=== PATIENT | male | born 1950 | race Hispanic/Latino ===

== ENCOUNTER 2017-03-17 09:19 | Outpatient (CLI) | payer BC | END 2017-03-17 09:20 | disposition home or self-care (01) | LOC: BICULT 09:19 | PROVIDERS: ATTEND Internal Medicine | DX: R30.0 Dysuria (principal) | CPT/HCPCS: 76770 ==

== ENCOUNTER 2017-03-18 08:19 | Emergency (ER) | payer BC ==
[2017-03-18 09:28] LABS: #Eosinphils 0.2 thou/uL (0.0-0.7); #Lymphocytes 1.7 thou/uL (1.20-3.40); #Monocytes 0.5 thou/uL (0.11-0.59); #Neutrophils 3.4 thou/uL (1.40-6.50); %Basophils 0.7 % (0.0-1.0); %Eosinophils 4.1 % (0.0-10.0); %Lymphocytes 28.8 % (21.0-51.0); %Monocytes 8.4 % (0.0-10.0); Hemoglobin 15.6 g/dL (14.0-18.0); Mean Corpuscular Hemoglobin 29.2 pg (27.0-31.0); Mean Corpuscular Volume 85.9 fl (80.0-94.0); Mean Platelet Volume 8.1 fL (7.4-10.4); Platelet Count 208 thou/uL (130-400); RBC Distribution Width 12.5 % (11.5-14.5); Red Blood Cell (RBC) Count 5.34 mill/uL (4.70-6.10); White Blood Cell (WBC) Count 5.9 thou/uL (4.8-10.8)
[2017-03-18 09:49] LABS: ALT (SGPT) 23 U/L (8-55); AST (SGOT) 21 U/L (5-34); Albumin 4.4 g/dL (3.4-4.8); Alkaline Phosphatase 97 U/L (40-150); Anion Gap 8 mmol/L (10-20); BUN (Urea Nitrogen) 9 mg/dL (8.4-25.7); Bilirubin, Total 0.6 mg/dL (0.2-1.2); Calc. Creatinine Clearance 0 mL/min (70-130); Calcium 10.6 mg/dL (7.8-10.44); Carbon Dioxide 28 mmol/L (23-31); Chloride 104 mmol/L (98-107); Estimated GFR-MDRD Greater than 90; Globulin 3.4 g/dL (2.4-3.5); Glucose 102 mg/dL (80-115); Potassium 3.9 mmol/L (3.5-5.1); Protein, Total 7.8 g/dL (5.8-8.1); Sodium 136 mmol/L (136-145)
[2017-03-18 10:12] LABS: Bilirubin Negative (Negative); Blood, Urine Negative (Negative); Clarity CLEAR (Clear); Glucose, Urine (Dipstick) Negative (Negative); Leukocyte Negative (Negative); Nitrite Negative (Negative); Protein, Urine (Dipstick) Negative (Neg-Trace); Specific Gravity, Urine 1.008 (1.002-1.036); Urobilinogen 0.2 mg/dL (0.2-1.0)
--- NOTE | 2017-03-18 10:56 | CT ---
CT ABDOMEN AND PELVIS WITH CONTRAST: Date: 03/18/17 HISTORY: Rectal pain. COMPARISON: CT abdomen and pelvis dated 08/06/10. FINDINGS: Mild atelectatic changes in the lung bases. No pericardial effusion. The spleen, pancreas, and gallbladder are unremarkable. There is a hypodensity in hepatic segment 8, too small to fully characterize. Aortoiliac contour is nonaneurysmal. No retroperitoneal adenopathy. No hydronephrosis. Too small to characterize hypodensity is present in the inferior pole of left kidney measuring 7 mm. There is extensive diverticular disease of the sigmoid colon without active inflammation. The appendi x is visualized and is normal. Limited evaluation of the external and internal sphincters are unremarkable. There is some low grade thickening of posterior wall urinary bladder. Previous TURP changes of the prostate. Pancreas is visualized and is normal. IMPRESSION: 1. No acute inflammatory process in abdomen or pelvis. 2. 7 mm hypodensity inferior pole left kidney. A follow-up ultrasound in 3-6 months is recommended. This is not definitively a cyst, although too small to definitively characterize. 3. Likely TURP changes of the prostate and neck of the urinary bladder. 4. Normal appendix. 5. Extensive diverticular disease sigmoid colon without current active inflammation. POS: [facility]
[2017-03-18] MEDS ORDERED: ISOVUE-370 76%-LOCM 1 ML ONE (14:29)
== END 2017-03-18 10:40 | disposition home or self-care (01) ==
LOC: ERS 08:19
DX: K57.90 Diverticulosis of intestine, part unspecified, without perforation or abscess without bleeding (principal); N41.9 Inflammatory disease of prostate, unspecified; I10 Essential (primary) hypertension; Z79.899 Other long term (current) drug therapy
CPT/HCPCS: 36415; 74177; 80053; 81003; 85025

== ENCOUNTER 2017-03-21 15:47 | Outpatient (CLI) | payer BC | END 2017-03-21 15:48 | disposition home or self-care (01) | LOC: BICULT 15:47 | PROVIDERS: ATTEND Internal Medicine | DX: M47.26 Other spondylosis with radiculopathy, lumbar region (principal) | CPT/HCPCS: 72148 ==

== ENCOUNTER 2017-11-16 07:44 | Outpatient (CLI) | payer BC | END 2017-11-16 07:45 | disposition home or self-care (01) | LOC: BICMAMMO 07:44 | PROVIDERS: ATTEND Internal Medicine | DX: Z13.820 Encounter for screening for osteoporosis (principal); E21.3 Hyperparathyroidism, unspecified | CPT/HCPCS: 77080 ==

== ENCOUNTER 2019-06-06 14:02 | Outpatient (CLI) | payer BC, MEDICARE ==
--- NOTE | 2019-06-06 15:46 | ULT ---
BILATERAL TESTICULAR ULTRASOUND WITH GARCIA SCALE AND COLOR FLOW AND SPECTRAL DOPPLER IMAGING: HISTORY: A 68-year-old male with scrotal pain worse on the right. FINDINGS: The right testis measures 3 x 4.7 x 2 cm and the left testis measures 3.2 x 4.3 x 2.4 cm. Symmetric blood flow is seen to both testes without focal mass or microlithiasis. The right epididymis measures 9 x 9 mm and the left epididymis measures 10 x 6 mm. There is a 5 mm c yst in the right epididymal head and 2 cysts measuring 6 and 4 mm in the left epididymal head. There is increased flow to the right epididymis compared to the left. A small left hydrocele is present. IMPRESSION: Findings highly suspicious for a right-sided epididymitis. POS: [facility]
== END 2019-06-06 14:03 | disposition home or self-care (01) ==
LOC: SCSULT 14:02
PROVIDERS: ATTEND Internal Medicine
DX: N50.819 Testicular pain, unspecified (principal)
CPT/HCPCS: 76870; 93976

== ENCOUNTER 2020-01-08 08:25 | Outpatient (CLI) | payer MEDICARE ==
--- NOTE | 2020-01-08 12:15 | NM ---
Exam: Nuclear medicine parathyroid scan HISTORY: Elevated parathyroid levels TECHNIQUE: Patient was administered 26.10 mCi of radiotracer. Planar and SPECT imaging was performed FINDINGS: Planar imaging: There is appropriate uptake of the radiotracer in the immediate, 1 hour and 2 hour im ages. There is no evidence of radiotracer retention in the thyroid bed to suggest a parathyroid adenoma SPECT imaging: Axial, sagittal and coronal SPECT images do not demonstrate scintigraphic evidence of a parathyroid adenoma IMPRESSION: No scintigraphic evidence of a parathyroid adenoma. Consider soft tissue neck CT utilizing parathyroi d protocol.
== END 2020-01-08 08:26 | disposition home or self-care (01) ==
LOC: NM 08:25
PROVIDERS: ATTEND Internal Medicine
DX: E21.3 Hyperparathyroidism, unspecified (principal)
CPT/HCPCS: 78072; A9500

== ENCOUNTER 2020-03-19 09:02 | Outpatient (CLI) | payer MEDICARE | END 2020-03-19 09:03 | disposition home or self-care (01) | LOC: BICULT 09:02 | PROVIDERS: ATTEND Internal Medicine | DX: N50.812 Left testicular pain (principal); N50.89 Other specified disorders of the male genital organs; N50.3 Cyst of epididymis | CPT/HCPCS: 76870; 93976 ==

== ENCOUNTER 2020-04-24 08:00 | Outpatient (CLI) | payer MEDICARE ==
[2020-04-24 08:29] LABS: Estimated GFR-MDRD - POC Greater than 90
[2020-04-24] MEDS ORDERED: Iopamidol-370 76% 500 ML 1 ML ONE (11:48)
== END 2020-04-24 08:01 | disposition home or self-care (01) ==
LOC: BICCT 08:00
PROVIDERS: ATTEND Physician Assistant
DX: N50.812 Left testicular pain (principal); R10.30 Lower abdominal pain, unspecified; K62.89 Other specified diseases of anus and rectum; R16.0 Hepatomegaly, not elsewhere classified; K57.30 Diverticulosis of large intestine without perforation or abscess without bleeding
CPT/HCPCS: 74177; 82565; Q9967

== ENCOUNTER 2020-06-10 08:45 | Outpatient (CLI) | payer MEDICARE ==
[2020-06-10 09:41] LABS: Estimated GFR-MDRD - POC Greater than 90
[2020-06-10] MEDS ORDERED: Magnevist 469MG/ML 20 ML VIAL ONE (12:35)
== END 2020-06-10 08:46 | disposition home or self-care (01) ==
LOC: BICMRI 08:45
PROVIDERS: ATTEND Internal Medicine
DX: K76.9 Liver disease, unspecified (principal); K76.89 Other specified diseases of liver; N28.1 Cyst of kidney, acquired
CPT/HCPCS: 71045; 74183; 82565; A9579

== ENCOUNTER 2022-12-01 11:13 | Emergency (ER) | payer MEDICARE | END 2022-12-01 11:48 | disposition home or self-care (01) | LOC: ERS 11:13 | DX: I10 Essential (primary) hypertension (principal) | CPT/HCPCS: 93005 ==

== ENCOUNTER 2023-11-11 21:20 | Emergency (ER) | payer MEDICARE ==
[2023-11-11 21:57] LABS: #Basophils 0.07 10x3/uL (0.0-0.2); %Basophils 0.7 % (0.0-1.0); %Eosinophils 3.4 % (0.0-10.0); %Lymphocytes 20.8 % (21.0-51.0); %Monocytes 7.4 % (0.0-10.0); %Neutrophils 67.4 % (42.0-75.0); Hematocrit 42.3 % (42.0-52.0); Mean Corpuscular HGB CONC 35.5 g/dL (32.0-36.0); Mean Corpuscular Hemoglobin 29.8 pg (27.0-31.0); Mean Corpuscular Volume 84.1 fL (78.0-98.0); Mean Platelet Volume 9.9 fL (7.4-10.4); Platelet Count 207 10x3/uL (130-400); RBC Distribution Width 12.8 % (11.5-14.5); Red Blood Cell (RBC) Count 5.03 mill/uL (4.70-6.10)
[2023-11-11 22:14] LABS: ALT (SGPT) 22 U/L (8-55); AST (SGOT) 13 U/L (5-34); Alkaline Phosphatase 88 U/L (40-110); Anion Gap 11 mmol/L (10-20); BUN (Urea Nitrogen) 10 mg/dL (8.4-25.7); Bilirubin, Total 0.4 mg/dL (0.2-1.2); Calc. Creatinine Clearance 0 mL/min (70-130); Calcium 10.6 mg/dL (7.8-10.44); Carbon Dioxide 26 mmol/L (23-31); Chloride 107 mmol/L (98-107); Estimated GFR 95; Globulin 3.7 g/dL (2.4-3.5); Glucose 118 mg/dL (83-110); Potassium 4.5 mmol/L (3.5-5.1); Protein, Total 7.7 g/dL (5.8-8.1); Sodium 139 mmol/L (136-145)
[2023-11-11 22:17] LABS: Troponin I Less than 0.010 ng/mL (< 0.028)
== END 2023-11-11 23:55 | disposition home or self-care (01) ==
LOC: ERS 21:20
DX: R00.1 Bradycardia, unspecified (principal); E83.52 Hypercalcemia; I10 Essential (primary) hypertension; Z55.0 Illiteracy and low-level literacy
CPT/HCPCS: 36415; 71045; 80053; 84484; 85025; 93005

== ENCOUNTER 2024-01-11 12:59 | Outpatient (CLI) | payer MEDICARE | END 2024-01-11 13:00 | disposition home or self-care (01) | LOC: BICRAD 12:59 | PROVIDERS: ATTEND Internal Medicine | DX: R05.1 Acute cough (principal) | CPT/HCPCS: 71046 ==